=== PATIENT | male | born 1970 | race Caucasian/White ===

== ENCOUNTER 2022-05-18 16:02 | Outpatient (CLI) | payer OTHER, SELFPAY | END 2022-05-18 16:03 | disposition home or self-care (01) | PROVIDERS: Visit Provider Nurse Practitioner Family | DX: H93.19 Tinnitus, unspecified ear (principal) | CPT/HCPCS: 80053; 86140 ==

== ENCOUNTER 2022-10-20 19:31 | Outpatient (CLI) | payer OTHER, SELFPAY | END 2022-10-20 19:32 | disposition home or self-care (01) | LOC: SLEEP 19:32 | PROVIDERS: Visit Provider Otolaryngology | DX: G47.33 Obstructive sleep apnea (adult) (pediatric) (principal) | CPT/HCPCS: 95806 ==

== ENCOUNTER 2022-12-02 19:35 | Outpatient (CLI) | payer OTHER, SELFPAY ==
--- NOTE | 2022-12-08 08:54 | W.PM.SLEEP ---
Sleep Study Details Details Interpreting Provider: Willei Date of Sleep Study: 12/02/22 Sleep Study Details: STUDY TYPE:? Home unattended ? BMI:? 29.3 ORDERING PROVIDER:? Willie INDICATION:? Concerns about sleep apnea ? SLEEP SUMMARY:? 444 minutes monitored RESPIRATORY SUMMARY:? AHI 19.5. The majority of the study was done in the supine position Low oxygen 85 1.3% of study oxygen less than 90% Snoring 16.7% PERIODIC LIMB MOVEMENTS OF SLEEP:? Not recorded during home study CARDIAC:? Range 53-99 beats per minute, mean 65 beats per minute IMPRESSION:? Moderate obstructive sleep apnea RECOMMENDATION: Treatment options include CPAP AutoSet, dental appliance and/or airway expansion surgery.
== END 2022-12-02 19:36 | disposition home or self-care (01) ==
LOC: SLEEP 19:40
PROVIDERS: Visit Provider Otolaryngology
DX: G47.33 Obstructive sleep apnea (adult) (pediatric) (principal)
CPT/HCPCS: 95806